=== PATIENT | female | born 1980 | race Caucasian/White ===

== ENCOUNTER 2022-06-22 20:45 | Emergency (ER) | payer OTHER ==
[~2022-06-22] VITALS: Ht 170.2 cm; Wt 57.6 kg
[2022-06-22] MEDS ORDERED: PANADOL (21:55)
[2022-06-22] MEDS ORDERED: MEDROLPACK PO (23:36)
[2022-06-22] MEDS ORDERED: ULTRACET PO (23:36)
[2022-06-22] MEDS ORDERED: METAXALONE800 MG PO (23:36)
== END 2022-06-22 23:52 | disposition home or self-care (01) ==
LOC: ER 20:45
DX: S39.012A Strain of muscle, fascia and tendon of lower back, initial encounter (principal); X58.XXXA Exposure to other specified factors, initial encounter; Y93.9 Activity, unspecified; Y92.9 Unspecified place or not applicable; Y99.9 Unspecified external cause status; M62.830 Muscle spasm of back; Z88.8 Allergy status to other drugs, medicaments and biological substances

== ENCOUNTER 2023-01-10 13:16 | Outpatient (CLI) | payer OTHER ==
[~2023-01-10 13:16] MED LIST: MEDROLPACK PO; METAXALONE800 MG PO; PANADOL; ULTRACET PO
== END 2023-01-10 13:31 | disposition home or self-care (01) ==
LOC: RAD 13:16
PROVIDERS: ATTEND Internal Medicine Rheumatology
DX: M06.9 Rheumatoid arthritis, unspecified (principal)

== ENCOUNTER 2023-01-16 10:45 | Outpatient (CLI) | payer OTHER | END 2023-01-16 11:03 | disposition home or self-care (01) | LOC: SONOGRAMA 10:45 | PROVIDERS: ATTEND Internal Medicine Rheumatology | DX: M06.9 Rheumatoid arthritis, unspecified (principal) ==

== ENCOUNTER → 2023-04-04 | Outpatient (CLI) | payer OTHER | END | disposition home or self-care (01) | LOC: MAMO-SONO 12:29 | DX: Z12.39 Encounter for other screening for malignant neoplasm of breast (principal); Z12.31 Encounter for screening mammogram for malignant neoplasm of breast ==